=== PATIENT | female | born 1975 | race Caucasian/White ===

== ENCOUNTER → 2018-09-11 12:12 | Outpatient (CLI) | payer OTHER ==
--- NOTE | 2018-09-18 08:49 | ST ---
PATIENT:MINDA MARTINEZ MEDICAL RECORD: [id number] SEX: F LOCATION:[facility] ORDER #: ADMISSION DATE: 09/11/18 AGE OF PATIENT: 43 REFERRING PHYSICIAN: INTERPRETING PHYSICIAN: ESTEBAN LAWLER MD DATE OF SERVICE: 09/11/2018 PROCEDURE: Treadmill stress test. Baseline ECG is normal. Exercised for 9 minutes and 13 seconds on Doug protocol. Maximum heart rate is 149 beats per minute. No ECG change of ischemia. No symptoms of ischemia. Normal blood pressure response to exercise. Fair exercise tolerance for age. TRANSINT:[id number] Voice Confirmation ID: [id number] DOCUMENT ID: [id number] ESTEBAN LAWLER MD at 0849 CC: [id number] DICTATION DATE: 09/12/18 1320 ELEMENTARY LIBRARIAN: 09/12/18 1411 DEP CLI 09/11/18 [place] [id number] [place] [address]
--- NOTE | 2018-09-18 08:49 | EC ---
PATIENT:MINDA MARTINEZ DATE OF SERVICE: 09/11/18 SEX: F MEDICAL RECORD: [id number] DATE OF : 75 LOCATION:[facility] AGE OF PATIENT: 43 ADMISSION DATE: 09/11/18 REFERRING PHYSICIAN: INTERPRETING PHYSICIAN: ESTEBAN LAWLER MD ECHOCARDIOGRAM REPORT ECHO CHARGES 4 ECHO COMPLETE Date: 09/11/18 CLINICAL DIAGNOSIS: MURMUR/PALPITATIONS/DYSPNEA ON EXERTION. ECHOCARDIOGRAPHIC MEASUREMENTS (adult normal given) AC root (d.<3.7cm) 3.1 cm LV Septum d (<1.2 cm> 1.4 cm Valve Excursion 1.7 cm LV Septum (systole) 1.6 cm Left Atria (s.<4.0cm> 3.9 cm LVPW d(<1.2cm) 1.6 cm RV (d.<2.3cm) 2.8 cm LVPW (sytole) 1.7 cm LV diastole(<5.6CM) 4.8 cm MV E-F(>70mm/sec) cm LV systole 3.5 cm LVOT Diameter 1.6 cm MV exc.(>10mm) 1.3 cm Est.ejection fraction (50-75%) % DOPPLER: LVIT cm/sec A 89.0 cm/sec E 74.0 cm/sec LA cm/sec RVSP 31 mmHg LVOT 111 cm/sec AOP1/2T m/s Asc. Ao 153 cm/sec RVOT 60 cm/sec RA cm/sec PA 123 cm/sec AV Gradient Peak 9.31 mmHg AV Mean 4.86 mmHg AV Area 1.8 cm MV Gradient Peak 3.35 mmHg MV Mean 1.42 mmHg MV Area cm COMMENTS: Civil Geotechnical Engineer: 2 ZAHRA BLOCK Cable Mechanic: 3 Dr. Gayle TAPE# PACS Pericardial Effusion N DATE OF SERVICE: Adequate 2D echo, color flow imaging, spectral Doppler, and M-Mode Mild LVH. LV internal dimension is normal. Wall motion is normal. EF is greater than or equal to 55%. Aortic valve is tricuspid. No evidence of stenosis by Doppler interrogation. Left atrium normal at 3.9 cm. Mitral valve shows no prolapse. Trace MR. Right sided chambers are grossly normal. Trace TR. ECHOCARDIOGRAM REPORT [id number] MINDA MARTINEZ TRANSINT:[id number] Voice Confirmation ID: [id number] DOCUMENT ID: [id number] ESTEBAN LAWLER MD at 0849 CC: [id number] DICTATION DATE: 09/13/18 1434 FLATWORK SUPERVISOR: 09/13/18 1843 DEP CLI 09/11/18 [place] [id number] [place] [id number]
== END | disposition home or self-care (01) ==
LOC: D.HCCARDIO 12:12
PROVIDERS: ATTEND Internal Medicine Interventional Cardiology
DX: R00.2 Palpitations (principal)